=== PATIENT | male | born 1985 | race Caucasian/White ===

== ENCOUNTER 2019-03-24 10:55 | Emergency (ER) | payer OTHER, SELFPAY ==
[2019-03-24 10:58] VITALS: BP 133/87; PULSE 90; RESP 18; TEMP 36.8; O2SAT 98
--- NOTE | 2019-03-24 11:35 | PC.NURSE ---
c/o blisters in mouth on right going into throat. Noted right tonsil swollen / red. Denies fever. Airway intact. Able to take fluids. Appears well hydrated.
[2019-03-24] MEDS: IBUPROFEN SUSP 100 MG/5 ML UDC 800 MG PO (11:46)
--- NOTE | 2019-03-24 11:59 | ED.URI ---
HPI - URI/Sore Throat <Ivette Claire PA-C - Last Filed: 03/24/19 20:34> General Chief Complaint: Dental/Oral Stated Complaint: Swollen in back of throat,sores in mouth Time Seen by Provider: 03/24/19 11:09 Source: patient Mode of arrival: ambulatory Limitations: no limitations History of Present Illness HPI Narrative: This healthy 34-year-old male comes to ED secondary to 5 day history of worsening sore throat, started with itching, irritation and some cough. He has gradually had more swelling and pain and saw sores in the throat today. He states he has felt somewhat more tired and weak in general. He denies rash or fever. He denies sinus pain, earache, dyspnea. He states that he has traveled domestically by air recently, no other known exposures. Related Data Previous Rx's Medication Instructions Recorded amoxicillin 500 mg PO Q8H #30 cap 03/24/19 ibuprofen 800 mg PO Q8H PRN #30 tab 03/24/19 lidocaine HCl [Lidocaine Viscous] 15 ml MM Q3-4H PRN #180 ml 03/24/19 Allergies Allergy/AdvReac Type Severity Reaction Status Date / Time No Known Drug Allergies Allergy Verified 03/24/19 11:02 Review of Systems <Ivette Claire PA-C - Last Filed: 03/24/19 20:34> Review of Systems ROS Unobtainable: All systems reviewed & are unremarkable except as noted in HPI and below PFSH <Ivette Claire PA-C - Last Filed: 03/24/19 20:34> Medical History (Updated 03/24/19 @ 12:15 by Ivette Claire PA-C) Chronic diarrhea (Chronic) Healthy adult male (Chronic) Surgical History (Updated 03/24/19 @ 12:15 by Ivette Claire PA-C) Radius and ulna distal fracture (Resolved) Social History Smoking Status: Current some day smoker Social History Smoking Status: Current some day smoker Comment: occ vap, no cigarettes Exam <Ivette Claire PA-C - Last Filed: 03/24/19 20:34> Narrative Exam Narrative: GENERAL APPEARANCE: Patient sitting comfortably, in no distress. HEAD: No sinus TTP. EYES: PERRL, EOMI. EARS: Normal auditory canals, TMS intact with normal light reflexes. ORAL CAVITY: Normal oropharynx. THROAT: Erythematous, right-sided tonsillar enlargement and some exudate without uvular deviation, less erythematous on the left without exudate NECK/THYROID: Neck supple, full range of motion, shotty tender anterior cervical lymphadenopathy much more prominent on the right. LUNGS: Clear to auscultation bilaterally, no cough on exam. HEART: RRR without murmur, nl S1, S2, no S3 or S4. DERMATOLOGIC: No exanthem Initial Vital Signs Initial Vital Signs: Vital Signs Temperature 98.3 F 03/24/19 10:58 Pulse Rate 90 03/24/19 10:58 Respiratory Rate 18 03/24/19 10:58 Blood Pressure 133/87 03/24/19 10:58 Pulse Oximetry 98 03/24/19 10:58 <Jazmyn Reese MD - Last Filed: 03/26/19 08:56> Initial Vital Signs Initial Vital Signs: Vital Signs Temperature 98.3 F 03/24/19 10:58 Pulse Rate 90 03/24/19 10:58 Respiratory Rate 18 03/24/19 10:58 Blood Pressure 133/87 03/24/19 10:58 Pulse Oximetry 98 03/24/19 10:58 Course <Ivette Claire PA-C - Last Filed: 03/24/19 20:34> Orders Ordered: Discontinued Medications Ibuprofen (Motrin Susp) 800 mg PO NOW ONE Stop: 03/24/19 11:36 Last Admin: 03/24/19 11:46 Dose: 800 mg Vital Signs - 8 hr 03/24/19 10:58 Temperature 98.3 F Pulse Rate 90 Respiratory Rate 18 Blood Pressure 133/87 Pulse Oximetry 98 <Jazmyn Reese MD - Last Filed: 03/26/19 08:56> Orders Ordered: Discontinued Medications Ibuprofen (Motrin Susp) 800 mg PO NOW ONE Stop: 03/24/19 11:36 Last Admin: 03/24/19 11:46 Dose: 800 mg Vital Signs - 8 hr 03/24/19 10:58 Temperature 98.3 F Pulse Rate 90 Respiratory Rate 18 Blood Pressure 133/87 Pulse Oximetry 98 MDM - URI/Sore Throat <Ivette Claire PA-C - Last Filed: 03/24/19 20:34> Lab Data Point of Care Testing Rapid Strep A Positive <Jazmyn Reese MD - Last Filed: 03/26/19 08:56> Lab Data Point of Care Testing Rapid Strep A Positive Discharge Plan Departure Patient Disposition: Home Clinical Impression: Strep throat Discharge Date/Time: 03/24/19 12:22 Interventions: ED Discharge Assessment Last Done: 03/24/19 12:21 Instructions: DI for Strep Throat Activity Restrictions/Additional Instructions: As we talked about, you should return to the closest emergency room if you have severe throat swelling, difficulty breathing or managing your secretions, or high fever not responding to ibuprofen and Tylenol. Otherwise, please remain off of work until you have been on the antibiotic at least 48 hours. Start the amoxicillin as soon as you pick it up (I sent your prescriptions to [facility] in [place]). I have also up prescribed some topical throat anesthetic to help with pain. Take the prescription ibuprofen every 8 hours since it seemed to help your pain (instead of naproxen) and you can add Tylenol as needed. 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 Prescriptions: New amoxicillin 500 mg capsule 500 mg PO Q8H Qty: 30 RF: 0 ibuprofen 800 mg tablet 800 mg PO Q8H PRN (Reason: pain) Qty: 30 RF: 0 lidocaine HCl [Lidocaine Viscous] 2 % solution 15 ml MM Q3-4H PRN (Reason: throat pain) Qty: 180 RF: 0 Referrals: [facility] [Provider Group] Stand Alone Forms: Work Release Note
[2019-03-24 12:20] VITALS: BP 128/80; PULSE 80; RESP 15; O2SAT 99
== END 2019-03-24 12:22 | disposition home or self-care (01) ==
PROVIDERS: Emergency Provider Internal Medicine
DX: J02.0 Streptococcal pharyngitis (principal)
CPT/HCPCS: 87880; 99282; 99283

== ENCOUNTER → 2019-10-26 14:32 | Outpatient (CLI) | payer OTHER, SELFPAY ==
[2019-11-02 15:44] LABS: Calprotectin, Stool < 15.6 mcg/g
== END ==
PROVIDERS: Referring Provider Internal Medicine Gastroenterology; Visit Provider Internal Medicine Gastroenterology
DX: R19.7 Diarrhea, unspecified (principal)
CPT/HCPCS: 83993; 87045; 87177; 87329; 87899